=== PATIENT | male | born 1980 | race Caucasian/White ===

== ENCOUNTER 2019-08-26 10:00 | Day surgery (SDC) | payer OTHER, SELFPAY ==
--- NOTE | 2019-08-25 10:49 | HP.PCM_ITS ---
Problem List (1) Bleeding Status: Acute (2) Blood in stool Status: Acute History and Physical Date of Admission: 08/25/19 Intake Vital Signs 08/25/19 Height 5 ft 10 in 08/25/19 Weight: 155 lb 08/25/19 Body Mass Index (BMI) 22.2 08/25/19 Blood Pressure 126/86 H 08/25/19 Blood Pressure Location Rt brachial 08/25/19 Respiratory Rate 16 08/25/19 Pulse Rate 82 08/25/19 Pulse Source Monitor 08/25/19 Temperature 98.5 F 08/25/19 Pulse Ox 100 08/25/19 Oxygen Delivery Method room air Intake Visit Reasons: Hemorrhoids Quick Service Technician Required: No Is patient in pain?: Yes (Rectum) Pain scale (1-10): 7 Allergies Penicillins Allergy (Unknown, Verified 08/25/19 10:33) Unknown [facility] Medical History (Updated 08/25/19 @ 09:42 by Ana Cristina Sterling) Anemia (Acute) Bleeding (Acute) Hemorrhoids (Acute) Blood in stool (Acute) Constipation (Acute) Diarrhea (Acute) Abdominal pain (Acute) SOB (shortness of breath) (Acute) Numbness and tingling (Acute) Back problem (Acute) Fatigue (Acute) Surgical History (Updated 08/25/19 @ 09:42 by Ana Cristina Sterling) Hx of colonoscopy (Acute) History of dental surgery (Acute) History of esophagogastroduodenoscopy (EGD) (Acute) Family History (Updated 08/25/19 @ 10:01 by Ana Cristina Sterling) Mother No problems noted. Social History (Updated 08/25/19 @ 10:49 by oJseluis Wallace MD) Smoking Status: Current every day smoker quit status: quit date established alcohol intake: never substance use type: does not use caffeine: No what type of physical activity do you participate in: none frequency: does not exercise HPI HPI HPI: YAEL MELCHOR, is a 39 M who presents to the office today for HPI HPI HPI: YAEL MELCHOR, is a 39 M who presents to the office today for rectal pain and bleeding. Patient reports he is been painful for 5 days and having bleeding. His bleeding does not only happen with bowel movements he is leaking blood. He reports severe tenderness in the area as well. He has a history of hemorrhoids. He had a colonoscopy in 2010. ROS General General: No weight change or fatigue Cardio Cardiovascular: No murmur, pacemaker, heart disease, atrial fibrillation, high blood pressure, heart attack, heart stent, palpitations, shortness of breat with exertion or chest pain Psych Psychiatric: No depression or anxiety Resp Respiratory: Yes shortness of breath, No sleep apnea, No cough, No COPD, No asthma, No emphysema, No wheezing Gastro Gastrointestinal: Yes abdominal pain, No nausea or vomiting, Yes diarrhea, Yes constipation, Yes blood in stool, No acid reflux, Yes hemorrhoids, No ulcers, No gallbladder problem, No black,tarry stools Les Hematologic: No blood thinners, Yes bleeding, Yes anemia Exam Const General: cooperative, healthy appearing Orientation: alert, oriented x3 Resp Effort & Inspection: normal respiratory effort Auscultation: clear to auscultation bilaterally Cardio Rate: regular rate Rhythm: regular rhythm Heart Sounds: no murmurs GI Inspection: non-distended Palpation: soft, nontender Other: The patient does have a firm mass in the anal canal. It is able to be reduced. There is no external component. There is blood. Assessment & Plan Problems 1. Mass of anus K62.89 Plan The patient is having bleeding and tenderness. He has a dark firm area in the anal canal. It is able to be reduced and there is no external component suggesting thrombosed hemorrhoid. It is possible that this is an anal mass versus thrombosed internal hemorrhoid which has prolapse. I recommend taking the patient tomorrow for hemorrhoidectomy and exam under anesthesia. If this is a mass I will perform biopsies. If this is a thrombosed hemorrhoid with necrosis due to prolapse I will perform a hemorrhoidectomy. I discussed the risks of bleeding, infection, incontinence. The patient understands and is willing to proceed. Joseluis Wallace MD Pager: [facility] [address] [place] [address] [address] [place] [address] Office:
[2019-08-26] VITALS (7 sets, daily range): BP systolic 112–122; BP diastolic 78–99; PULSE 53–77; RESP 15–18; TEMP 36.2–36.8; O2SAT 98–100; BMI 21.7
--- NOTE | 2019-08-26 | HEM_PTH ---
PATIENT: VANDA MELCHOR LOC: [facility] U#:[id number] AGE/SX: 39/M ROOM: RE08/26/[address]: Dr. Joseluis Wallace MD : 1980 BED: DIS: 08/26/2019 SPEC #: [id number] RECD: 08/26/19 14:16 STATUS: RIGO HOWARD #: [id number] ERICK: 08/26/19 00:[address]: Joseluis Wallace DEPT: SURGICAL PATHOLOGY RECD BY: Ja Matta ENTERED: 08/26/19 14:16 SP TYPE: HEMORRHOID OTHR DR: Dr. Flako Kimbrough MD Tissues: A - HEMORRHOIDS B - HEMORRHOIDS Procedures: Surgery Specimen Level III HEADER OPERATION: Hemorrhoidectomy x2, exam under anesthesia PRE-OP DIAGNOSIS: Rectal bleeding TISSUE SUBMITTED: A - Left-sided hemorrhoid, B - Right-sided hemorrhoid MICROSCOPIC DIAGNOSIS A. Left-sided hemorrhoid, hemorrhoidectomy: A piece of anorectal mucosa with dilated and congested blood vessels, consistent with hemorrhoid. B. Right-sided hemorrhoid, hemorrhoidectomy: A piece of anorectal mucosa with dilated and congested blood vessels, consistent with hemorrhoid. KARTIK:iesha 08/27/19 MICROSCOPIC DESCRIPTION Slides are reviewed. GROSS DESCRIPTION A - Received in fixative is one container labeled with the patient's name and designated left-sided hemorrhoid. The specimen consists of a piece of estrada mucosal tissue measuring 1.5 x 1 x 0.6 cm. The specimen is serially sectioned and submitted entirely in one cassette. B - Received in fixative is one container labeled with the patient's name and designated right-sided hemorrhoid. The specimen consists of a piece of estrada mucosal tissue measuring 1 x 1 x 0.6 cm. The specimen is serially sectioned and submitted entirely in one cassette. / KARTIK:iesha 08/26/19 TC:5 CPT: 16638 x2
[2019-08-26] MEDS: Lactated Ringers 1,000 ML 100 ML IV (10:33)
[2019-08-26] MEDS: Bupivacaine Mpf 0.5% 30 ML VIAL (12:04)
[2019-08-26] MEDS: Dibucaine 30 GM Tube 1 APPLIC (12:13)
--- NOTE | 2019-08-26 12:38 | PCM.OPRPT ---
Problem List (1) Bleeding Status: Acute (2) Blood in stool Status: Acute Report of Operation Date of Procedure: 08/26/19 Pre-Operative Diagnosis: Bleeding hemorrhoids grade 3 Post-Operative Diagnosis: Same Surgery/Procedure Performed:: Hemorrhoidectomy x2, internal and external Specimen's removed: Right hemorrhoid. left hemorrhoid Description of Procedure: The patient was brought back to the operating room and general anesthesia was induced. The patient was placed in prone jackknife position. The buttocks were taped in an open position and the perineal area was prepped. A well-lubricated retractor was placed into the anus and appeared that there were 2 columns of internal hemorrhoids which were prolapsed and ulcerated. These appear to be the source of his bleeding. These were soft. Both of these were taken by retracting the hemorrhoid internally and using the harmonic scalpel. This spared the sphincter and the sphincter was intact after resection. The mucosa of both of these hemorrhoidal columns was reapproximated with a running 3-0 chromic suture. Four-quadrant local anesthetic was injected and a dibucaine soaked rolled Gelfoam pad was placed into the rectum. Patient tolerated the procedure well was brought back in stable condition. - Admit VTE Documentation VTE Mechan Device Prophylaxis: SCD's
--- NOTE | 2019-08-26 12:42 | PCM.DC.REC ---
Discharge Diet: No Restrictions Discharge Activity: Return to Normal Activity, May Not Drive - while you are taking narcotic pain medications. Do not drive, work with heavy equipment or sign legal documents for 24 hours after your surgery., May Shower Additional Activity Instructions:: Be aware that pain medications may cause nausea. You should typically eat light foods as you take your pain medications. Pain medications may also cause constipation, if you have difficulty with this please discuss with your doctor. Call your doctor if your incision/area has: Continuous Slow Oozing, Sudden Increased Bleeding, Increased Pain/ Swelling, Increased Redness, Foul Smelling Discharge, Swelling at the incision site Call your doctor if you observe: Fever of 101 or Higher Additional Dressing/Incision Instructions:: Leave the operative bandage on for 2 days. If a local anesthetic plug was placed in the anal area, try not to expel for [address] dibucaine ointment on the perianal area as needed. Sitz baths twice daily and after bowel movements. Allergies/Adverse Reactions: Allergies Penicillins Allergy (Unknown, Verified 08/26/19 10:23) Unknown Medications to take at Discharge Ibuprofen 200 mg PO PRN PRN 08/25/19 Docusate Sodium [Colace] 100 mg PO BID 10 Days #20 cap 08/26/19 Oxycodone HCl/Acetaminophen [Percocet 5/325] 1 - 2 tablet PO Q4H PRN PRN 5 Days #40 tablet 08/26/19 The following prescriptions were given: Docusate Sodium [Colace] 100 mg PO BID 10 Days #20 cap Transmission Status: Pending to [facility] Oxycodone HCl/Acetaminophen [Percocet 5/325] 1 - 2 tablet PO Q4H PRN PRN 5 Days #40 tablet PRN Reason: Pain Transmission Status: Sent to [facility] Primary Care Physician: Flako Kimbrough MD [Primary Care Provider] - Test Results: Test results from this visit will be discussed in further detail at your follow-up appointment, if applicable. Please Follow Up With: Joseluis Wallace MD When: Please call to schedule 2 week follow up appointment. [phone]
[2019-08-26] MEDS: Acetaminophen 325 MG Tablet 650 MG PO (14:15)
[2019-08-26] MEDS: oxyCODONE 5 MG Tablet 10 MG PO (14:15)
== END 2019-08-26 15:02 | disposition home or self-care (01) ==
LOC: SDC 10:02 → AC 10:04
PROVIDERS: Family Provider Family Medicine; PCP Family Medicine; Referring Provider Surgery; Visit Provider Surgery
PROC: (CPT 46260; principal; 2019-08-26 11:30)
DX: K64.2 Third degree hemorrhoids (principal); K59.00 Constipation, unspecified; Z86.2 Personal history of diseases of the blood and blood-forming organs and certain disorders involving the immune mechanism; F17.200 Nicotine dependence, unspecified, uncomplicated
CPT/HCPCS: 46260; 88304; J7120; J2310; J2405

== ENCOUNTER 2022-04-06 20:32 | Emergency (ER) | payer BC, SELFPAY ==
[2022-04-06 20:33] VITALS: BP 130/84; PULSE 70; RESP 18; TEMP 36.3; O2SAT 99; BMI 22.4
[2022-04-06 20:49] LABS: Mucous, Urine 0 SEEN /hpf (<or=2+); Red Blood Cells-Urine 0 SEEN /hpf (0-5); Squamous Epithelial Cells - UA 0 SEEN /hpf (0-5); White Blood Cells 0 SEEN /hpf (0-5)
[2022-04-06 20:54] LABS: Color, Urine Yellow (Yellow); Glucose, Dipstick Normal (Normal); Ketone-Dipstick Negative (Negative); Leukocyte Esterase-Dipstick Negative /ul (Negative); Nitrite-Dipstick Negative (Negative); Occult Blood-Urine Negative /ul (Negative); Protein-Dipstick 15 mg/dl (Negative); Specific Gravity, Urine 1.015 (1.002-1.030); Urine Bilirubin Dipstick Negative (Negative); Urine Clarity Clear (Clear); Urine Urobilinogen 1 mg/dl (Normal); Urine pH 6.5 (5.0 - 8.0)
--- NOTE | 2022-04-06 21:01 | CT_ITS ---
STUDY: CT ABDOMEN AND PELVIS WITH CONTRAST REASON FOR EXAM: Male, 41 years old. abd pain RADIATION DOSAGE (If Supplied By Facility): CTDIvol = ( 9.25 ) mGy, DLP = ( 448.92 ) mGycm TECHNIQUE: Transaxial images were obtained from the dome of the diaphragm to the symphysis pubis without oral contrast. IV 100mL Isovue-300 was administered. Sagittal and coronal images were reconstructed. Individualized dose optimization techniques were used for this CT. COMPARISON: None. FINDINGS: LOWER CHEST: Normal. LIVER: Normal. GALLBLADDER/BILE DUCTS: Gallbladder decompressed, limiting evaluation.. PANCREAS: Normal. SPLEEN: Normal. ADRENAL GLANDS: Normal. KIDNEYS/URETERS/BLADDER: Normal. RETROPERITONEUM/AORTA: Normal. BOWEL/MESENTERY: Normal. APPENDIX: Identified and normal. PERITONEUM: Normal. REPRODUCTIVE ORGANS: Normal. BONES/SOFT TISSUES: No acute abnormality. OTHER: None. CT/Abdomen/Pelvis W IV Cont ONLY IMPRESSION: No bowel dilatation or bowel wall thickening. Normal appendix. Electronically Signed: Salazar Hatch MD at 22:18 EDT ,
--- NOTE | 2022-04-06 21:02 | ED.VIS.GI ---
HPI HPI - GI History of Present Illness Chief Complaint: Abd Pain Informant: patient Abdominal Pain/Flank Pain Onset: Days Context: Gradual Onset Timing: Continuous Quality: Aching Location: Diffuse Current Severity: Mild Maximum Severity: Mild Worsened by: Car ride and Movement Relieved by: Nothing Nausea/Vomiting/Emesis GI Symptom: Negative for Nausea and Vomiting Diarrhea/Melena/Hematochezia GI Symptom: Negative for Diarrhea, Melena and Hematochezia Associated Symptoms Associated Symptoms: Negative for Dysuria, Frequency, Hematuria and Urgency Narrative Narrative: 41-year-old male no seen past medical or surgical history. No prior abdominal surgeries. Since Sunday he has had some abdominal pain. He denies any nausea or vomiting. He denies any diarrhea. Denies any fever. He has had mild constipation. He has had normal p.o. intake. No change of his discomfort with eating or drinking. He denies any dysuria or hematuria. Denies any weight change. He has never had any abdominal surgeries. States the pain is primarily periumbilical but is diffuse. Prior similar symptoms: No Recent Illness/Hospitalization: No PFSH PFS Medical History (Updated 04/06/22 @ 23:[address] El Warren MD) Abdominal pain Anemia Back problem Bleeding Blood in stool Constipation Diarrhea Fatigue Hemorrhoids Numbness and tingling SOB (shortness of breath) Home Medications ibuprofen 200 mg PO PRN PRN 08/25/19 [History Last Taken Unknown] tamsulosin 0.4 mg capsule 0.4 mg PO DAILY #14 cap 08/27/19 [Rx Last Taken Unknown] Allergy/AdvReac Type Severity Reaction Status Date / Time Penicillins Allergy Unknown Unknown Verified 04/06/22 20:35 Family History Mother No problems noted. Surgical History History of dental surgery History of esophagogastroduodenoscopy (EGD) Hx of colonoscopy Hx of hemorrhoidectomy Social History Smoking Status: Current every day smoker tobacco type: cigarettes quit status: quit date established alcohol intake: never substance use type: does not use caffeine: No what type of physical activity do you participate in: none frequency: does not exercise ROS ROS ED ROS Narrative Abdominal pain. Mild constipation. Review of Systems ROS Unobtainable: Denies due to encephalopathy Constitutional Constitutional ED: Denies fever(s) ENT ENT ED: Denies ear pain Cardiovascular Cardiovascular: Denies chest pain Respiratory/Chest Respiratory/Chest: Denies dyspnea Gastrointestinal Gastrointestinal: Reports abdominal pain and constipation; Denies diarrhea, melena, nausea or vomiting Genitourinary Genitourinary ED: Denies dysuria Musculoskeletal Musculoskeletal: Denies myalgias Integumentary Denies rash Neurologic Neurologic: Denies headache(s) Psychiatric Psychiatric: Denies depression Endocrine Endocrinology: Denies polyuria Hematologic/Lymphatic Hematologic/Lymphatic: Denies easy bruising Allergic/Immunologic Allergic/Immunologic ED: Denies urticaria EXAM Physical Exam Narrative Exam Narrative: 41-year-old male no acute distress. Vital signs stable afebrile. HEENT exam unremarkable. Moist with membranes. Lungs are clear. Heart regular rhythm rate about 70 no murmur. Abdomen soft. Nondistended. Normal bowel sounds. No hernia or mass. He does have diffuse abdominal tenderness primarily periumbilical. No Wang sign. No McBurney's tenderness. No signs of obstruction. Moving all 4 extremities. Back nontender. Const Vital Signs: 04/06/22 20:33 Temperature 97.3 F L Temperature Source Temporal Pulse Rate 70 Respiratory Rate 18 Blood Pressure 130/84 H Blood Pressure Mean 99 Pulse Ox 99 Oxygen Delivery Method Room Air Positive well nourished and well developed; Negative for obese, cachectic, contractures or unkempt General Appearance ED: well developed and NAD; Negative for unkempt, cachectic, contractures or pallor Nutritional Appearance: Negative for cachectic or obese HEENT Reports moist mucous membranes normocephalic and atraumatic; Negative for trauma or tenderness Eyes PERRL and EOMs intact bilaterally Neck no lymphadenopathy, supple and no JVD General: Negative for tenderness Resp normal respiratory effort and clear to auscultation bilaterally Auscultation: Negative for rales, rhonchi or wheezes Cardio regular rate, regular rhythm, S1 normal heart sound, S2 normal heart sound and no murmurs GI non-distended and no masses; Negative for non-tender Inspection: Negative for abdominal distention Auscultation: normoactive bowel sounds; Negative for hyperactive bowel sounds or hypoactive bowel sounds Palpation: soft and tender; Negative for guarding, rigid, hepatomegaly, splenomegaly, hernia, pulsatile mass or rebound tenderness present Back/Spine no CVA tenderness General Back: Negative for CVA tenderness Extremity full ROM General Extremety ED: Negative for edema or tenderness General Extremity: Negative for edema Neuro moves all extremities Sensorium / Orientation: alert, oriented to person, oriented to place and oriented to time Motor Exam: strength 5/5 throughout Psych mental status grossly normal and thought process normal Appearance: Negative for unkempt Mood & Affect: Negative for depressed or tearful Skin no wounds General Skin Exam: Negative for jaundice or pallor Lesions: no lesions Rashes: no rashes MDM MDM MDM Narrative Medical decision making narrative: 41-year-old abdominal pain. He did not anything for pain. CAT scan and labs are pending. Repeat exam at 11:10 PM patient doing well. Abdomen is benign. We went over all his test results. Will be discharged home. Follow-up as needed. Return if increasing pain, fever or intractable vomiting. Lab Data Attestation: I reviewed the patient's lab results. Lab results narrative: CBC normal. White count of 5. H&H 14 and 42. Platelets 154. Electrolytes unremarkable gap is 7 normal BUN and creatinine. Liver enzymes unremarkable other than total bilirubin 1.5. Lipase normal 140. UA negative. No signs of infection. CAT scan read by the radiologist and reviewed by me shows no acute abnormality. There is increased stool as pain may be from constipation. Labs: Laboratory Results - last 24 hr 04/06/22 04/06/22 04/06/22 20:45 21:15 21:15 WBC 5.6 RBC 4.83 Hgb 14.4 Hct 42.3 MCV 87.6 MCH 29.8 MCHC 34.0 RDW Std Deviation 39.3 RDW Coeff of Monique 12.3 Plt Count 154 MPV 11.3 Immature Gran % (Auto) 0.400 Neut % (Auto) 47.6 Lymph % (Auto) 39.8 Mcclain % (Auto) 7.9 Eos % (Auto) 4.1 Baso % (Auto) 0.2 Absolute Neuts (auto) 2.7 Absolute Lymphs (auto) 2.22 Nucleated RBC % 0 Sodium 142 Potassium 3.9 Chloride 109 H Carbon Dioxide 26.0 Anion Gap 7 BUN 11 Creatinine 0.98 Estim Creat Clear Calc 106.07 Est GFR (MDRD) Af Amer 109 Est GFR (MDRD) Non-Af 90 BUN/Creatinine Ratio 11.3 Glucose 98 Calcium 8.9 Total Bilirubin 1.50 H AST 18 ALT 17 Alkaline Phosphatase 86 Total Protein 6.7 Albumin 3.7 Globulin 3.0 Albumin/Globulin Ratio 1.2 Lipase 140 Urine Color Yellow Urine Clarity Clear Urine pH 6.5 Ur Specific Highland 1.015 Urine Protein 15 H Urine Glucose (UA) Normal Urine Ketones Negative Urine Occult Blood Negative Urine Nitrite Negative Urine Bilirubin Negative Urine Urobilinogen 1 H Ur Leukocyte Esterase Negative Urine RBC 0 SEEN Urine WBC 0 SEEN Ur Squamous Epith Cells 0 SEEN Urine Bacteria RARE Urine Mucus 0 SEEN Radiography Diagnostic Testing: Clinical Impression(s) from Imaging Studies Abdomen/Pelvis CT 04/06/22 21:01 IMPRESSION: No bowel dilatation or bowel wall thickening. Normal appendix. Electronically Signed: Salazar Hatch MD at 22:18 EDT Reading Location ID and State: [address] [place] [address] Tel , Service support , Discharge Plan Triage Chief Complaint: Abd Pain ED Provider: El Warren Dx/Rx/DC Orders Clinical Impression: Abdominal pain, Constipation Instructions: Abdominal Pain, ED Constipation (Adult) Prescriptions: No Action ibuprofen 200 MG capsule 200 mg PO PRN PRN (Reason: Pain Score 1-10/10) RF: 0 tamsulosin [Flomax] 0.4 mg capsule 0.4 mg PO DAILY Qty: 14 RF: 0 Primary Care Provider: Care Physician,No Primary Referrals: Brayden eCrna MD [STAFF PHYSICIAN] - As Needed NOT,DEFINED [NON-STAFF] - Activity Restrictions/Additional Instructions: Your labs, urinalysis and CAT scan were unremarkable. He did have increased stool the pain may be from constipation. To treat that plenty of fluids, fruits, vegetables and fiber. [id number] magnesium citrate as needed. Follow-up if not improving or return if worse. Disposition Disposition: Home, Self Care
[2022-04-06 21:10] LABS: Bacteria RARE /hpf (None Seen)
[2022-04-06 21:27] LABS: Absolute Lymphocyte Count 2.22 X10^3/uL (0.83-4.51); Absolute Neutrophil Count 2.7 X10^3/uL (2.0-7.7); Basophil# 0.01 X10^3/uL; Basophil% 0.2 % (0-1); Eosinophil# 0.23 X10^3/uL; Eosinophils% 4.1 % (0-5); Hematocrit 42.3 % (40-54); Hemoglobin 14.4 g/dL (13.0-16.5); Lymphocyte # 2.22 X10^3/ul (0.83-4.51); Lymphocyte % 39.8 % (19-41); Mean Corpuscular Hgb 29.8 pg (27.0-32.0); Mean Corpuscular Volume 87.6 fL (80-94); Mean Platelet Vol. 11.3 fl (6.2-12.0); Monocyte# 0.44 X10^3/uL; Monocyte% 7.9 % (0-10); NRBC Flagged by Analyzer 0 % (0-5); Neutrophil # 2.66 X10^3/uL (2.7-7.7); Neutrophil % 47.6 % (47-70); Platelet Count 154 K/mm3 (150-450); RBC Distribution Width CV 12.3 % (11.6-14.6); RBC Distribution Width SD 39.3 fl (35.1-43.9); Red Blood Count 4.83 M/mm3 (4.6-6.2); White Blood Count 5.6 K/mm3 (4.4-11.0)
[2022-04-06 21:41] LABS: ALB/GLOB Ratio 1.2 RATIO (0.9-2.4); AST(SGOT) 18 U/L (15-37); Alanine Aminotransfer ALT/SGPT 17 U/L (16-61); Albumin, Serum 3.7 g/dL (3.2-5.0); Alkaline Phosphatase 86 U/L (45-117); Anion Gap 7 (5-15); BUN 11 mg/dL (7-18); BUN/Creat Ratio 11.3 RATIO (10-20); Calcium,Total 8.9 mg/dL (8.5-10.1); Chloride 109 mmol/L (98-107); Creatinine, Serum 0.98 mg/dL (0.70-1.30); EST Glomerular Filtration Rate 90 mL/min (>60); Est Glom Filt Rate - Afr Amer 109 mL/min (>60); Estimated Creatinine Clearance 106.07 ml/min; Glucose 98 mg/dL (74-106); Lipase 140 U/L (73-393); Potassium 3.9 mmol/L (3.5-5.1); Protein, Total 6.7 g/dL (6.4-8.2); Sodium Level 142 mmol/L (136-145)
== END 2022-04-06 23:18 | disposition home or self-care (01) ==
PROVIDERS: Emergency Provider Emergency Medicine; Visit Provider Emergency Medicine
DX: K59.00 Constipation, unspecified (principal); F17.210 Nicotine dependence, cigarettes, uncomplicated
CPT/HCPCS: 74177; 80053; 81001; 83690; 85025; 99283; Q9967; A4216

== ENCOUNTER → 2022-08-09 | Outpatient (CLI) | payer BC, SELFPAY ==
[2022-08-09 17:38] LABS: Absolute Lymphocyte Count 2.08 X10^3/uL (0.83-4.51); Absolute Neutrophil Count 4.3 X10^3/uL (2.0-7.7); Basophil# 0.03 X10^3/uL; Basophil% 0.4 % (0-1); Eosinophils% 1.4 % (0-5); Hemoglobin 15.1 g/dL (13.0-16.5); Lymphocyte # 2.08 X10^3/ul (0.83-4.51); Lymphocyte % 29.6 % (19-41); Mean Corp Hgb Conc 34.3 g/dL (32-36); Mean Corpuscular Hgb 30.9 pg (27.0-32.0); Mean Platelet Vol. 11.7 fl (6.2-12.0); Monocyte# 0.49 X10^3/uL; NRBC Flagged by Analyzer 0 % (0-5); Neutrophil % 61.3 % (47-70); Platelet Count 157 K/mm3 (150-450); RBC Distribution Width CV 12.4 % (11.6-14.6); RBC Distribution Width SD 40.7 fl (35.1-43.9); Red Blood Count 4.89 M/mm3 (4.6-6.2)
[2022-08-09 18:02] LABS: ALB/GLOB Ratio 1.3 RATIO (0.9-2.4); AST(SGOT) 18 U/L (15-37); Alanine Aminotransfer ALT/SGPT 21 U/L (16-61); Albumin, Serum 4.1 g/dL (3.2-5.0); Alkaline Phosphatase 94 U/L (45-117); Anion Gap 8 (5-15); BUN 8 mg/dL (7-18); Calcium,Total 8.8 mg/dL (8.5-10.1); Chloride 108 mmol/L (98-107); Creatinine, Serum 0.89 mg/dL (0.70-1.30); EST Glomerular Filtration Rate 100 mL/min (>60); Est Glom Filt Rate - Afr Amer 121 mL/min (>60); Globulin 3.1 g/dL (2.2-4.2); Glucose 84 mg/dL (74-106); Potassium 3.4 mmol/L (3.5-5.1); Protein, Total 7.2 g/dL (6.4-8.2); Sodium Level 141 mmol/L (136-145)
[2022-08-10 08:51] LABS: Hepatitis B Surface Antibody Non-Reactive; Hepatitis B Surface Antigen Non-Reactive (Nonreactive); Hepatitis C Antibody Non-Reactive (Nonreactive)
[2022-08-12 08:09] LABS: QNTFERON TB Mitogen Value > 10.00 IU/mL (.); QNTFERON TB Nil Value 0.06 IU/mL (.); QNTFERON TB1+ Ag Value 0.05 IU/mL (.); QNTFERON TB2+ Ag Value 0.05 IU/mL (.)
[2022-08-12 09:06] LABS: Hepatitis B Core Ab Total Negative (Negative); QNTIFERON TB Positive Criteria Negative (Negative)
== END | disposition home or self-care (01) ==
LOC: MTLAB 16:29
PROVIDERS: Referring Provider Dermatology; Visit Provider Dermatology
DX: L40.0 Psoriasis vulgaris (principal); L40.59 Other psoriatic arthropathy
CPT/HCPCS: 36415; 80053; 82248; 85025; 86480; 86704; 86706; 86803; 87340

== ENCOUNTER → 2022-09-11 | Outpatient (CLI) | payer BC, SELFPAY ==
[2022-09-13 20:07] LABS: QNTFERON TB Mitogen Value > 10.00 IU/mL (.); QNTFERON TB Nil Value 0.09 IU/mL (.); QNTFERON TB1+ Ag Value 0.12 IU/mL (.); QNTFERON TB2+ Ag Value 0.11 IU/mL (.)
[2022-09-14 17:31] LABS: Hepatitis B Core Ab Total Negative (Negative); QNTIFERON TB Positive Criteria Negative (Negative)
== END | disposition home or self-care (01) ==
PROVIDERS: Referring Provider Dermatology; Visit Provider Dermatology
DX: L40.0 Psoriasis vulgaris (principal); Z79.899 Other long term (current) drug therapy
CPT/HCPCS: 36415; 86480; 86704